=== PATIENT | female | born 1950 | race Caucasian/White ===

== ENCOUNTER 2017-12-16 08:47 | Inpatient (IN) | payer MEDICARE, OTHER ==
[2017-12-16] MEDS ORDERED: NS 0.9% 1000 ML* 1,000 ML IV ONE (09:11)
[2017-12-16 09:53] LABS: ABS Basophils 0 10^3/ul (0-0.2); ABS Eosinophils 0 10^3/ul (0-0.6); ABS Lymphocytes 0.4 10^3/ul (1.0-4.8); ABS Monocytes 0.8 10^3/ul (0-0.8); ABS Neutrophils 12.1 10^3/ul (1.5-7.7); ABS Nucleated RBC 0 10^3/ul; Eosinophil % 0 % (0-6); Hematocrit 38 % (35-47); Hemoglobin 12.8 g/dl (12.0-16.0); Lymphocyte % 2.9 % (25-47); Mean Corpuscular HGB Conc 34 g/dl (31-36); Mean Corpuscular Hemoglobin 30 pg (27-31); Mean Corpuscular Volume 89 fL (80-97); Mean Platelet Volume 7 um3 (7.4-10.4); Nucleated Red Blood Cells % 0; Platelet Count 261 10^3/ul (150-450); Red Cell Distribution Width 13 % (10.5-15); White Blood Count 13.3 10^3/ul (3.5-10.8)
[2017-12-16 09:57] LABS: EGFR Non-African American 56.9 (>60)
--- NOTE | 2017-12-16 09:58 | RAD ---
HISTORY: Shortness of breath, cough COMPARISONS: November 03, 2006 VIEWS: 2: Frontal and lateral views of the chest. FINDINGS: CARDIOMEDIASTINAL SILHOUETTE: The cardiomediastinal silhouette is normal. SREE: The sree are normal. PLEURA: The costophrenic angles are sharp. No pleural abnormalities are noted. LUNG PARENCHYMA: There is hyperinflation with flattening of the diaphragm and expansion of the AP diameter of the chest. There is confluent alveolar opacification of the right lower lobe ABDOMEN: The upper abdomen is clear. There is no subphrenic gas. BONES AND SOFT TISSUES: Mild degenerative changes are noted. Surgical clips are noted in the right axilla. OTHER: None. IMPRESSION: 1. RIGHT LOWER LOBE CONSOLIDATION. 2. COPD. 3. RECOMMEND FOLLOW-UP UNTIL RESOLUTION TO EXCLUDE UNDERLYING PULMONARY PARENCHYMAL PATHOLOGY.
[2017-12-16] MEDS ORDERED: Levofloxacin 750 MG IVPREMIX(* 750 MG/150 ML BAG IVPB ONE (10:18)
[2017-12-16] MEDS: KCL 10 MEQ/50 ML IVPREMIX* 10 MEQ/50 ML BAG IV SCH ×2 (10:40→12:21)
[2017-12-16] MEDS ORDERED: Albuterol 2.5 MG/3 ML NEB.SOL* (0.083%) INH PRN (11:23)
[2017-12-16] MEDS ORDERED: Ondansetron INJ* 2 MG/ML VIAL IV PRN (11:23)
[2017-12-16] MEDS ORDERED: Acetaminophen TAB* 325 MG PO PRN (11:23)
[2017-12-16] MEDS ORDERED: NS 0.9% 1000 ML* 1,000 ML IV SCH (11:30)
[2017-12-16] MEDS ORDERED: Potassium Chlor TAB* 20 MEQ TAB.ER PO ONE (11:33)
[2017-12-16] MEDS ORDERED: Iodixanol* (CONTRAST) 320 MG/ML 100 ML SDV IV ONE (11:39)
[2017-12-16] MEDS: predniSONE TAB* 20 MG PO SCH (12:21)
--- NOTE | 2017-12-16 12:49 | RAD ---
INDICATION: Pneumonia. COMPARISON: Comparison is made with prior chest x-ray study from December 16, 2017. TECHNIQUE: A CT scan of the chest was performed with intravenous contrast following intravenous injection of 80 ml of Omnipaque 300 nonionic contrast. Contiguous axial sections were obtained from the lung apices through the lung bases. Images were reconstructed in the coronal and sagittal planes. FINDINGS: There is a small patchy infiltrate present in the posterior aspect of the right upper lobe and a slightly more prominent infiltrate present in the posterior aspect of the right lower lobe. There is a small right pleural effusion. The left lung appears clear. No significant enlarged mediastinal lymph nodes are seen. There is a 0.8 cm mildly prominent right hilar lymph node is noted. The heart is within normal limits in size. No pericardial effusion is present. The thoracic aorta is normal in caliber. There is moderate calcific plaque present. No significant focal osseous abnormality is seen. IMPRESSION: RIGHT UPPER AND LOWER LOBE INFILTRATES MOST CONSISTENT WITH PNEUMONIA. RECOMMEND FOLLOW-UP CHEST X-RAYS TO RESOLUTION.
[2017-12-16] MEDS: Albuterol/Ipratropium NEB.SOL* Albuterol 2.5 MG/Ipratropium 0.5 MG 3 ML INH SCH ×5 (13:15→23:26)
--- NOTE | 2017-12-16 13:49 | HP ---
CC: Dr. Reyes * HISTORY AND PHYSICAL: DATE OF ADMISSION: 12/16/17 PRIMARY CARE PROVIDER: Dr. Adrienne Reyes. ATTENDING PHYSICIAN WHILE IN THE HOSPITAL: Dr. Esther Coates * (report dictated by Ryan Manuel NP). CHIEF COMPLAINT: 1. Cough. 2. Shortness of breath. 3. Not feeling well. HISTORY OF PRESENT ILLNESS: Ms. Olvera is a 67-year-old female patient carrying a history of breast CA, hypothyroidism, hypertension, COPD, history of atrial fibrillation thought to be secondary to hypothyroidism which now resolved, no longer on anticoagulation, she comes into our ER today, says that on Tuesday night she started having a cough, it was nonproductive but then it strictly became productive, got progressively worse throughout the week, she spoke to her primary. She was started on cough syrup and she said cough syrup kind of had codeine in it and made her feel tired, drowsy, fatigued. The patient said that she had progressive worsening shortness of breath, cough. She had chills. She just was not feeling good. She denied any other symptoms of arthralgias and myalgias. She denied having any chest pain with exception when she coughs, she said that felt like it was stabbing in the right side of her chest. She denied having any abdominal discomfort. There has been no recent weight loss or weight changes. The patient said that she was getting short of breath, so she decided to come in to the ED today particularly when she woke up this morning really was coughing, she was bringing up more sputum and she was having some shortness of breath. She came into the ED, ultimately was found to have pneumonia. She denied having any dysuria or frequency and there was no loss of consciousness, only chest pain she has when she was coughing. PAST MEDICAL HISTORY: Significant for: 1. Breast CA 2. Hypothyroidism. 3. Hypertension. 4. COPD. 5. AFib. PAST SURGICAL HISTORY: 1. She has had a mastectomy. 2. She has had elbow surgery. MEDICATIONS: Home medications according to the list provided include: 1. Lopressor 25 mg p.o. b.i.d. 2. Atrovent 2 puffs inhaled every 6 hours. 3. Hydrochlorothiazide 25 mg daily. 4. Ventolin 2 puffs inhaled every 4 hours as needed. 5. Potassium 20 mEq p.o. daily. 6. Synthroid 37.5 mcg p.o. every other day alternating with 75 mcg. 7. Advair 1 puff inhaled b.i.d. ALLERGIES TO MEDICATIONS: Include no known drug allergies. FAMILY HISTORY: Mother had a history of dementia and breast cancer. Father had a history of colon cancer. SOCIAL HISTORY: She is a former. She does not drink alcohol. Surrogate decision maker is her . REVIEW OF SYSTEMS: There is no documented fever. She did admit to subjectively having some chills and feeling warm. She denied having any double vision. There was no ear discharge. She denied having rhinorrhea or sore throat. No thyroid enlargement. Denied having any orthopnea, nocturnal dyspnea. She did admit to having sharp stabbing chest pain with coughing. No abdominal pain. No nausea, no vomiting. No dysuria, no frequency. No seizure , no loss of consciousness. No pruritus, no skin ulcerations. Review of 14 systems completed, all others negative. PHYSICAL EXAMINATION GENERAL: At this time, Ms. Olvera is a 67-year-old female patient. She is sitting in the ED stretcher. She does not appear to be in any acute distress. VITAL SIGNS: Blood pressure 119/68, pulse 83, respirations 18, O2 sat 98% on 2 L, temperature 98.3. HEENT: Head: Atraumatic and normocephalic. Eyes: EOMs are intact. Sclerae anicteric and not pale. Throat: Oral mucosa appears to be dry. No oropharyngeal erythema. NECK: Supple. LUNGS: She had wheezing throughout. She had crackles in the right base. She had equal diaphragmatic expansion. HEART: Sounds S1 and S2. Regular rate and rhythm. No murmurs, rubs, or gallops. ABDOMEN: Soft, it was flat, nontender. Bowel sounds present. EXTREMITIES: Pulses were 2+ throughout. She is moving all 4 extremities with 5 /5 strength. NEUROLOGIC: The patient is awake. She is alert. She is oriented x3. Tongue midline. Dance Hall Host/Hostess are equal. No gross focal deficits. SKIN: Intact. DIAGNOSTIC STUDIES/LAB DATA: WBC of 13.3, RBC of 4.20, hemoglobin 12.8, hematocrit of 38, platelet count of 261. Sodium was 132, potassium is 2.9, chloride of 93, bicarb 28, BUN 22, creatinine 0.97, glucose 127, lactate 1.2, calcium 9.5, mag 1.9. Total bili 1.3, AST 38, ALT 44, alk phos 198. CK was 31. Troponin 0.01. CRP was 376 and albumin was 3.5. Serology was negative for flu. She did have chest x-ray. Under my review, it does appear that she has a right lower lobe infiltrate. Radiologist read as right lower lobe consolidation. She will be recommended followup until resolution to exclude underlying pulmonary parenchymal pathology. There was an EKG obtained today as well, shows a normal sinus rhythm, rate 88. No ST elevations or T-wave inversions. Reviewed with her previous EKG, it is similar exception actually the previous EKG was AFib and that was in 2005. Old medical records reviewed. ASSESSMENT AND PLAN: Ms. Olvera is 67-year-old female patient coming into the ED today with complaints of cough, not feeling well, progressive worsening shortness of breath and sputum production. On evaluation, found to have pneumonia. She will be admitted under inpatient status for: 1. Pneumonia. At this point, I will go ahead and place her on Rocephin and azithromycin. She got Levaquin here in the ED, so we will start using antibiotics tomorrow. I will go ahead and put her on nebs around the clock along with p.o. and inhaled steroids, pulmonary toileting, and we will check legionella antigen test, Streptococcus pneumoniae antigen, sputum cultures. Because of her history of smoking and the fact that she does have pneumonia, I am going to get CT of the chest as well to make sure there is any not other concerning findings and then if this does not show anything, she still need an x -ray post treatment, which can be followed with her primary. 2. Chronic obstructive pulmonary disease with exacerbation. Again steroids, Dulera, standing nebs, and p.r.n. albuterol has been ordered and pulmonary toileting. 3. Breast cancer. Follow with her primary. 4. Hypothyroidism. Continue her Synthroid. 5. Hypertension. In the setting of acute illness, I am going to hold the hydrochlorothiazide. I will keep her on the beta martina, because of the history atrial fibrillation, withhold parameters and we will follow. 6. Atrial fibrillation. Again, she is in sinus rhythm now, it was one time secondary to hypothyroidism. She has never been on anticoagulation, so we will just continue to follow. Follow with her primary. 7. DVT prophylaxis. She will be placed on heparin subcu. 8. Code status. She actually wished to be a DNR, she says she has a MOLST at home. We will try to get that if possible. 9. Fluids, electrolytes, and nutrition. She can have a regular diet. TIME SPENT: On admission 60 minutes, greater than half of the time was spent face- to-face with the patient obtaining my history and physical, other half of the time spent going over the plan of care with the patient and implementing plan of care. I did discuss the plan of care with my attending, Dr. Coates; she is in agreement. RYAN MANUEL NP [id number]/[facility] #: [id number] RAYA
[2017-12-16 18:45] LABS: Urine Appearance Clear; Urine Blood 3+ (Negative); Urine Color Yellow; Urine Ketones 1+ (Negative); Urine Protein Negative (Negative); Urine Specific Gravity 1.055 (1.010-1.030); Urine Urobilinogen Negative (Negative)
[2017-12-16] MEDS: Mometasone/Formoter 200/5 MDI INH SCH (19:50)
[2017-12-16] MEDS: Heparin VIAL(*) 5000 UNITS/ML VIAL (FIVE THOUSAND) SUBCUT SCH (21:02)
[2017-12-16] MEDS: Metoprolol Tartrate TAB* 25 MG PO SCH (21:02)
[2017-12-17] MEDS: Albuterol/Ipratropium NEB.SOL* Albuterol 2.5 MG/Ipratropium 0.5 MG 3 ML INH SCH ×6 (02:41→23:00)
[2017-12-17 05:05] LABS: ABS Basophils 0.1 10^3/ul (0-0.2); ABS Eosinophils 0 10^3/ul (0-0.6); ABS Lymphocytes 0.6 10^3/ul (1.0-4.8); ABS Monocytes 0.8 10^3/ul (0-0.8); ABS Neutrophils 10.9 10^3/ul (1.5-7.7); ABS Nucleated RBC 0 10^3/ul; Eosinophil % 0 % (0-6); Hematocrit 31 % (35-47); Hemoglobin 10.4 g/dl (12.0-16.0); Lymphocyte % 4.6 % (25-47); Mean Corpuscular HGB Conc 34 g/dl (31-36); Mean Corpuscular Hemoglobin 30 pg (27-31); Mean Corpuscular Volume 90 fL (80-97); Mean Platelet Volume 7 um3 (7.4-10.4); Nucleated Red Blood Cells % 0; Platelet Count 240 10^3/ul (150-450); Red Blood Count 3.43 10^6/ul (4.0-5.4); Red Cell Distribution Width 13 % (10.5-15); White Blood Count 12.3 10^3/ul (3.5-10.8)
[2017-12-17 05:16] LABS: INR 1.17 (0.77-1.02)
[2017-12-17] MEDS: Levothyroxine TAB* 75 MCG TAB PO SCH (06:08)
[2017-12-17] MEDS: Mometasone/Formoter 200/5 MDI INH SCH ×2 (07:51→19:35)
[2017-12-17] MEDS: cefTRIAXone VIAL(*) 1,000 MG in NS 0.9% 50 ML* 50 ML IVPB SCH (08:08)
[2017-12-17] MEDS: Heparin VIAL(*) 5000 UNITS/ML VIAL (FIVE THOUSAND) SUBCUT SCH ×2 (08:09→21:05)
[2017-12-17] MEDS: predniSONE TAB* 20 MG PO SCH (08:09)
[2017-12-17] MEDS: Metoprolol Tartrate TAB* 25 MG PO SCH ×2 (08:09→21:05)
[2017-12-17] MEDS: Potassium Chlor TAB* 20 MEQ TAB.ER PO SCH (08:09)
[2017-12-17] MEDS ORDERED: Azithromycin IV(*) 500 MG in NS 0.9% 250 ML* 250 ML IVPB SCH (09:30)
--- NOTE | 2017-12-17 10:15 | ED ---
Mitzy Mclain Gabriel, scribed for Fantasma Hernandez MD on 12/16/17 at 0912 . Respiratory - HPI Summary HPI Summary: This patient is a 67 year old F BIBA to [facility] with a chief complaint of a productive cough since 12/11/17. The patient rates the pain 6/10 in severity. Patient reports SOB, CP that began this morning, weakness, light headedness, and yellow thick sputum. Patient denies fever, chills, LE edema, and n/v/d. - History of Current Complaint Chief Complaint: EDUpperRespComplaint Stated Complaint: FLU LIKE SYPTOMS Time Seen by Provider: 12/16/17 08:53 Hx Obtained From: Patient Onset/Duration: Still Present Timing: Constant Initial Severity: Moderate Current Severity: Moderate Pain Intensity: 6 Sputum Amount: Small Sputum Color: Yellow Associated Signs and Symptoms: Negative - fever, chills, LE edema, and n/v/d., SOB, Chest Pain - Allergy/Home Medications Allergies/Adverse Reactions: Allergies Allergy/AdvReac Type Severity Reaction Status Date / Time No Known Allergies Allergy Verified 12/16/17 09:00 Home Medications: Home Medications Albuterol HFA INHALER* [Ventolin HFA Inhaler*] 2 puff INH Q4H PRN 12/16/17 [ History Confirmed 12/16/17] Fluticasone-Salmeterol 250-50* [Advair Diskus 250-50*] 1 puff INH BID 12/16/17 [ History Confirmed 12/16/17] Levothyroxine TAB* [Synthroid TAB*] 37.5 mcg PO EVERY OTHER DAY 12/16/17 [ History Confirmed 12/16/17] Potassium Chlor TAB* [Klor Con ER TAB*] 20 meq PO DAILY 12/16/17 [History Confirmed 12/16/17] PMH/Surg Hx/FS Hx/Imm Hx History: Denies: Hx Benign Prostatic Hyperplasia Musculoskeletal History: Denies: Hx Fibromyalgia, Hx Gout Neurological History: Denies: Hx CVA, Hx Dementia - Cancer History Hx Chemotherapy: Yes - BREAST Hx Radiation Therapy: No Infectious Disease History: No Infectious Disease History: Denies: Traveled Outside the [place] in Last 30 Days - Family History Known Family History: Negative: Hypertension, Seizure Disorder - Social History Alcohol Use: None Substance Use Type: Reports: None Smoking Status (MU): Former Smoker Review of Systems Negative: Fever, Chills Positive: Chest Pain Positive: Shortness Of Breath, Cough Negative: Vomiting, Diarrhea, Nausea Neurological: Other - light headedness Positive: Weakness All Other Systems Reviewed And Are Negative: Yes Physical Exam - Summary Physical Exam Summary: VITAL SIGNS: Reviewed. GENERAL: Patient is an elderly female who is lying comfortable in the stretcher. Patient is not in any acute respiratory distress. HEAD AND FACE: No signs of trauma. No ecchymosis, hematomas or skull depressions. No sinus tenderness. EYES: PERRLA, EOMI x 2, No injected conjunctiva, no nystagmus. EARS: Hearing grossly intact. Ear canals and tympanic membranes are within normal limits. MOUTH: Oropharynx within normal limits. NECK: Supple, trachea is midline, no adenopathy, no JVD, no carotid bruit, no c- spine tenderness, neck with full ROM. CHEST: Symmetric, no tenderness at palpation LUNGS: right sided crackles CVS: Regular rate and rhythm, S1 and S2 present, no murmurs or gallops appreciated. ABDOMEN: Soft, non-tender. No signs of distention. No rebound no guarding, and no masses palpated. Bowel sounds are normal. EXTREMITIES: FROM in all major joints, no edema, no cyanosis or clubbing. NEURO: Alert and oriented x 3. No acute neurological deficits. Speech is normal and follows commands. SKIN: Dry and warm Triage Information Reviewed: Yes Vital Signs On Initial Exam: Initial Vitals Temp Pulse Resp BP Pulse Ox 98.3 F 92 30 149/71 95 12/16/17 08:53 12/16/17 08:53 12/16/17 08:53 12/16/17 08:53 12/16/17 08:53 Vital Signs Reviewed: Yes Diagnostics - Vital Signs Vital Signs Temp Pulse Resp BP Pulse Ox 12/16/17 09:00 91 95 12/16/17 08:57 30 12/16/17 08:55 93 95 12/16/17 08:54 149/71 12/16/17 08:53 98.3 F 92 30 149/71 95 - Laboratory Lab Results: Lab Results 12/16/17 12/16/17 12/16/17 Range/Units 09:15 09:15 09:15 WBC 13.3 H (3.5-10.8) 10^3/ul RBC 4.20 (4.0-5.4) 10^6/ul Hgb 12.8 (12.0-16.0) g/dl Hct 38 (35-47) % MCV 89 (80-97) fL MCH 30 (27-31) pg MCHC 34 (31-36) g/dl RDW 13 (10.5-15) % Plt Count 261 (150-450) 10^3/ul MPV 7 L (7.4-10.4) um3 Neut % (Auto) 90.6 H (38-83) % Lymph % (Auto) 2.9 L (25-47) % Nicholas % (Auto) 6.3 (1-9) % Eos % (Auto) 0 (0-6) % Baso % (Auto) 0.2 (0-2) % Absolute Neuts (auto) 12.1 H (1.5-7.7) 10^3/ul Absolute Lymphs (auto) 0.4 L (1.0-4.8) 10^3/ul Absolute Monos (auto) 0.8 (0-0.8) 10^3/ul Absolute Eos (auto) 0 (0-0.6) 10^3/ul Absolute Basos (auto) 0 (0-0.2) 10^3/ul Absolute Nucleated RBC 0 10^3/ul Nucleated RBC % 0 Sodium 132 L (133-145) mmol/L Potassium 2.9 L (3.5-5.0) mmol/L Chloride 93 L (101-111) mmol/L Carbon Dioxide 28 (22-32) mmol/L Anion Gap 11 (2-11) mmol/L BUN 22 (6-24) mg/dL Creatinine 0.97 H (0.51-0.95) mg/dL Est GFR ( Amer) 73.2 (>60) Est GFR (Non-Af Amer) 56.9 (>60) BUN/Creatinine Ratio 22.7 H (8-20) Glucose 127 H (70-100) mg/dL Lactic Acid (0.5-2.0) mmol/L Calcium 9.5 (8.6-10.3) mg/dL Magnesium Pending Total Bilirubin 1.30 H (0.2-1.0) mg/dL AST 38 (13-39) U/L ALT 44 (7-52) U/L Alkaline Phosphatase 198 H (34-104) U/L Total Creatine Kinase 31 (10-223) U/L Troponin I 0.01 (<0.04) ng/mL C-Reactive Protein 376.43 H (< 5.00) mg/L B-Natriuretic Peptide 94 ( - 100) pg/mL Total Protein 7.9 (6.4-8.9) g/dL Albumin 3.5 (3.2-5.2) g/dL Globulin 4.4 H (2-4) g/dL Albumin/Globulin Ratio 0.8 L (1-3) Influenza A (Rapid) (Negative) Influenza B (Rapid) (Negative) 12/16/17 12/16/17 Range/Units 09:15 09:39 WBC (3.5-10.8) 10^3/ul RBC (4.0-5.4) 10^6/ul Hgb (12.0-16.0) g/dl Hct (35-47) % MCV (80-97) fL MCH (27-31) pg MCHC (31-36) g/dl RDW (10.5-15) % Plt Count (150-450) 10^3/ul MPV (7.4-10.4) um3 Neut % (Auto) (38-83) % Lymph % (Auto) (25-47) % Nicholas % (Auto) (1-9) % Eos % (Auto) (0-6) % Baso % (Auto) (0-2) % Absolute Neuts (auto) (1.5-7.7) 10^3/ul Absolute Lymphs (auto) (1.0-4.8) 10^3/ul Absolute Monos (auto) (0-0.8) 10^3/ul Absolute Eos (auto) (0-0.6) 10^3/ul Absolute Basos (auto) (0-0.2) 10^3/ul Absolute Nucleated RBC 10^3/ul Nucleated RBC % Sodium (133-145) mmol/L Potassium (3.5-5.0) mmol/L Chloride (101-111) mmol/L Carbon Dioxide (22-32) mmol/L Anion Gap (2-11) mmol/L BUN (6-24) mg/dL Creatinine (0.51-0.95) mg/dL Est GFR ( Amer) (>60) Est GFR (Non-Af Amer) (>60) BUN/Creatinine Ratio (8-20) Glucose (70-100) mg/dL Lactic Acid 1.2 (0.5-2.0) mmol/L Calcium (8.6-10.3) mg/dL Magnesium Total Bilirubin (0.2-1.0) mg/dL AST (13-39) U/L ALT (7-52) U/L Alkaline Phosphatase (34-104) U/L Total Creatine Kinase (10-223) U/L Troponin I (<0.04) ng/mL C-Reactive Protein (< 5.00) mg/L B-Natriuretic Peptide ( - 100) pg/mL Total Protein (6.4-8.9) g/dL Albumin (3.2-5.2) g/dL Globulin (2-4) g/dL Albumin/Globulin Ratio (1-3) Influenza A (Rapid) Negative (Negative) Influenza B (Rapid) Negative (Negative) Result Diagrams: 12/16/17 09:15 12/16/17 09:15 Lab Statement: Any lab studies that have been ordered have been reviewed, and results considered in the medical decision making process. - Radiology CXR Radiology Interpretation Completed By: Radiologist - 1. RIGHT LOWER LOBE CONSOLIDATION. 2. COPD. 3. RECOMMEND FOLLOW-UP UNTIL RESOLUTION TO EXCLUDE UNDERLYING PULMONARY PARENCHYMAL PATHOLOGY. ED physician has reviewed this radiology report. - EKG 0916 Cardiac Rate: NL EKG Rhythm: Sinus Rhythm - at 88 BPM EKG Interpretation: normal axis, no ST elevations Disposition - Course Assessment/Plan: In the ED course an IV access was obtained. Patient was placed in a head doffer. Patient was started with IV fluids. Labs without any significant abnormality except for increased WBC 13.3, NA 132, K 2.9, CRP 376, influenza A&B negative. Troponin #1: 0.01. CXR impression: 1. RIGHT LOWER LOBE CONSOLIDATION. 2. COPD. 3. RECOMMEND FOLLOW-UP UNTIL RESOLUTION TO EXCLUDE UNDERLYING PULMONARY PARENCHYMAL PATHOLOGY. In the ED course she was started in Levaquin. CURB 65 is moderate therefore it is recommended for impatient treatment. I discuss my physical exam, findings and test results with Dr. Coates from the hospitalist services and she agrees to admit patient to his services. Patient is hemodynamically stable alert and oriented x 3. - Differential Dx - Cardiopulmonary Differential Diagnoses - Cardiopulmonary: Asthma, Bronchitis, CHF, Influenza, Lower Resp Infection - Diagnoses Provider Diagnoses: Pneumonia - Physician Notifications Discussed Care Of Patient With: Esther Coates Time Discussed With Above Provider: 10:37 Instructed by Provider To: Other - We discussed patient care with Dr. Coates and they have accepted the patient for admission. Discharge - Discharge Plan Condition: Fair Disposition: ADMITTED TO [facility] documentation as recorded by the Mitzy barragan Gabriel accurately reflects the service I personally performed and the decisions made by me, Fantasma Hernandez MD.
--- NOTE | 2017-12-17 10:53 | PN ---
Subjective Date of Service: 12/17/17 Interval History: Feeling much better. Still with productive cough. Got SOB and reported wheezing with ambulation to bathroom. Was RA prior. pleuritic pain on right. cultures negative. abdominal upset, nausea, vomiting, diarrhea all resolved after 1 day (after taking cough medicine with codeine) was unable to really stand or ambulate at home as had been light headed Objective Active Medications: Acetaminophen (Tylenol Tab*) 650 mg PO Q4H PRN PRN Reason: FEVER/PAIN Albuterol (Ventolin 2.5 Mg/3 Ml Neb.Nisha*) 2.5 mg INH Q2H PRN PRN Reason: SOB/WHEEZING Albuterol/Ipratropium (Duoneb (Albuterol 2.5 Mg/Ipratropium 0.5 Mg)) 1 neb INH [id number] AWAKE [facility] Last Admin: 12/17/17 07:49 Dose: 1 neb Heparin Sodium (Porcine) (Heparin Vial(*)) 5,000 units SUBCUT Q12HR [facility] Last Admin: 12/17/17 08:09 Dose: 5,000 units Azithromycin 500 mg/ Sodium (Chloride) 250 mls @ 250 mls/hr IVPB Q24H [facility] Last Admin: 12/17/17 08:53 Dose: 250 mls/hr Ceftriaxone Sodium 1,000 mg/ (Sodium Chloride) 50 mls @ 200 mls/hr IVPB Q24H [facility] Last Admin: 12/17/17 08:08 Dose: 200 mls/hr Levothyroxine Sodium (Synthroid Tab*) 75 mcg PO Q48H [facility] Levothyroxine Sodium (Synthroid Tab*) 37.5 mcg PO Q48H [facility] Last Admin: 12/17/17 06:08 Dose: 37.5 mcg Metoprolol Tartrate (Lopressor Tab*) 25 mg PO BID [facility] Last Admin: 12/17/17 08:09 Dose: 25 mg Mometasone Furoate/Formoterol Fumar (Dulera 200/5 Mdi*) 2 puff INH BID [facility] Last Admin: 12/17/17 07:51 Dose: 2 puff Ondansetron HCl (Zofran Inj*) 4 mg IV Q6H PRN PRN Reason: NAUSEA Potassium Chloride (Klor Con Er Tab*) 20 meq PO DAILY [facility] Last Admin: 12/17/17 08:09 Dose: 20 meq Prednisone (Deltasone Tab*) 60 mg PO DAILY [facility] Last Admin: 12/17/17 08:09 Dose: 60 mg Vital Signs - 8 hr 12/17/17 12/17/17 12/17/17 03:12 07:22 07:41 Temperature 98.4 F 97.6 F Pulse Rate 84 80 Respiratory 16 16 16 Rate Blood Pressure 110/45 128/57 (mmHg) O2 Sat by Pulse 98 98 Oximetry 12/17/17 07:57 Temperature Pulse Rate 92 Respiratory 22 Rate Blood Pressure (mmHg) O2 Sat by Pulse 98 Oximetry Oxygen Devices in Use Now: Nasal Cannula Appearance: NAD, resting in bed Eyes: No Scleral Icterus, PERRLA Ears/Nose/Mouth/Throat: Clear Oropharnyx Neck: Trachea Midline Respiratory: - - rhonchi at right base. No significant wheezing or rales. Cardiovascular: NL Sounds; No Murmurs; No JVD, RRR, No Edema Abdominal: NL Sounds; No Tenderness; No Distention, No Hepatosplenomegaly Extremities: No Edema, No Clubbing, Cyanosis Skin: No Rash or Ulcers, No Nodules or Sclerosis Neurological: Alert and Oriented x 3, NL Sensation, NL Muscle Strength and Tone Result Diagrams: 12/17/17 04:54 12/17/17 04:54 Additional Lab and Data: Laboratory Results - last 24 hr 12/16/17 12/16/17 12/17/17 09:15 15:49 04:54 WBC 12.3 H RBC 3.43 L Hgb 10.4 L Hct 31 L MCV 90 MCH 30 MCHC 34 RDW 13 Plt Count 240 MPV 7 L Neut % (Auto) 88.8 H Lymph % (Auto) 4.6 L [place] % (Auto) 6.2 Eos % (Auto) 0 Baso % (Auto) 0.4 Absolute Neuts (auto) 10.9 H Absolute Lymphs (auto) 0.6 L Absolute Monos (auto) 0.8 Absolute Eos (auto) 0 Absolute Basos (auto) 0.1 Absolute Nucleated RBC 0 Nucleated RBC % 0 INR (Anticoag Therapy) Sodium Potassium Chloride Carbon Dioxide Anion Gap BUN Creatinine Est GFR ( Amer) Est GFR (Non-Af Amer) BUN/Creatinine Ratio Glucose Calcium Magnesium 1.9 Urine Color Yellow Urine Appearance Clear Urine pH 5.0 Ur Specific [place] 1.055 H Urine Protein Negative Urine Ketones 1+ H Urine Blood 3+ H Urine Nitrate Negative Urine Bilirubin Negative Urine Urobilinogen Negative Ur Leukocyte Esterase Negative Urine WBC (Auto) Trace(0-5/hpf) Urine RBC (Auto) 3+(>10/hpf) H Ur Squamous Epith Cells Present H Urine Bacteria Absent Urine Glucose Negative 12/17/17 12/17/17 04:54 04:54 WBC RBC Hgb Hct MCV MCH MCHC RDW Plt Count MPV Neut % (Auto) Lymph % (Auto) [place] % (Auto) Eos % (Auto) Baso % (Auto) Absolute Neuts (auto) Absolute Lymphs (auto) Absolute Monos (auto) Absolute Eos (auto) Absolute Basos (auto) Absolute Nucleated RBC Nucleated RBC % INR (Anticoag Therapy) 1.17 H Sodium 136 Potassium 3.5 Chloride 103 Carbon Dioxide 26 Anion Gap 7 BUN 13 Creatinine 0.73 Est GFR ( Amer) 101.7 Est GFR (Non-Af Amer) 79.0 BUN/Creatinine Ratio 17.8 Glucose 137 H Calcium 8.4 L Magnesium Urine Color Urine Appearance Urine pH Ur Specific [place] Urine Protein Urine Ketones Urine Blood Urine Nitrate Urine Bilirubin Urine Urobilinogen Ur Leukocyte Esterase Urine WBC (Auto) Urine RBC (Auto) Ur Squamous Epith Cells Urine Bacteria Urine Glucose Microbiology and Other Data: Microbiology 12/16/17 10:08 Blood Venous Aerobic Blood Culture - Preliminary No Growth Day 1 12/16/17 10:08 Blood Venous Anaerobic Blood Culture - Preliminary No Growth Day 1 12/16/17 10:08 Blood Venous Aerobic Blood Culture - Preliminary No Growth Day 1 12/16/17 10:08 Blood Venous Anaerobic Blood Culture - Preliminary No Growth Day 1 12/16/17 18:45 Urine Legionella Urinary Antigen - Final Negative Legionella 12/16/17 18:45 Urine Streptococcus pneumoniae Ag Screen - Final Negative S. pneumo Antigen 12/16/17 09:39 Sputum Gram Stain - Final 12/16/17 09:15 Nasal Influenza Types A,B Antigen (JANNA) - Final Specimen received for Influenza A/B Molecular testing Assess/Plan/Problems-Billing Assessment: 67 yo female PMH COPD, breast CA, HTN, hypothyroidism p/w productive cough, chills, SOB 2/2 RLL>RUL pna. Improving on ceftriaxone and azithromycin. on RA. - Patient Problems (1) PNA (pneumonia) Current Visit: Yes Status: Acute Code(s): J18.9 - PNEUMONIA, UNSPECIFIED ORGANISM SNOMED Code(s): 163255606 Comment: Continue ceftriaxone. Switch azithromycin to 250mg po from 500mg IV s/p 1 dose levaquin in ED. f/u Cultures, Gram Stain with 3+ BPC, 2+ GPB. strep pna and legionella urine Ags negative BCx negative. nontoxic appearing. (2) COPD (chronic obstructive pulmonary disease) Current Visit: Yes Status: Acute Code(s): J44.9 - CHRONIC OBSTRUCTIVE PULMONARY DISEASE, UNSPECIFIED SNOMED Code(s): 10164569 Comment: home was advair and atrovent. continue dulera, duonebs q2h prn prednisone 60mg daily. taper rapidly (3) HTN (hypertension) Current Visit: Yes Status: Acute Code(s): I10 - ESSENTIAL (PRIMARY) HYPERTENSION SNOMED Code(s): 38435559 Comment: continue metoprolol 25mg BID. (4) Hypothyroidism Current Visit: Yes Status: Acute Code(s): E03.9 - HYPOTHYROIDISM, UNSPECIFIED SNOMED Code(s): 64693729 Comment: continue synthroid 75 mcg daily. Status and Disposition: medicine inpatient. anticipate d/c 12/18 Attending: Hemal Baum
[2017-12-18] MEDS: Albuterol/Ipratropium NEB.SOL* Albuterol 2.5 MG/Ipratropium 0.5 MG 3 ML INH SCH ×5 (04:14→19:37)
[2017-12-18] MEDS: Levothyroxine TAB* 75 MCG TAB PO SCH (05:46)
[2017-12-18] MEDS: predniSONE TAB* 20 MG PO SCH (08:02)
[2017-12-18] MEDS: Azithromycin TAB* 250 MG PO SCH (08:02)
[2017-12-18] MEDS: Metoprolol Tartrate TAB* 25 MG PO SCH ×2 (08:02→20:11)
[2017-12-18] MEDS: Heparin VIAL(*) 5000 UNITS/ML VIAL (FIVE THOUSAND) SUBCUT SCH ×2 (08:02→20:12)
[2017-12-18] MEDS: Potassium Chlor TAB* 20 MEQ TAB.ER PO SCH (08:02)
[2017-12-18] MEDS: cefTRIAXone VIAL(*) 1,000 MG in NS 0.9% 50 ML* 50 ML IVPB SCH (08:03)
[2017-12-18] MEDS: Mometasone/Formoter 200/5 MDI INH SCH ×2 (08:22→19:37)
--- NOTE | 2017-12-18 10:57 | PN ---
Subjective Date of Service: 12/18/17 Interval History: Weaned off oxygen at rest but needing minimum of 3L with ambulation (quickly desat to 85% and likley headed lower). SOB when got back to bed. Afebrile. no chest pain/pressure. poor appetite (food unappetizing) Objective Active Medications: Acetaminophen (Tylenol Tab*) 650 mg PO Q4H PRN PRN Reason: FEVER/PAIN Albuterol (Ventolin 2.5 Mg/3 Ml Neb.Nisha*) 2.5 mg INH Q2H PRN PRN Reason: SOB/WHEEZING Albuterol/Ipratropium (Duoneb (Albuterol 2.5 Mg/Ipratropium 0.5 Mg)) 1 neb INH [id number] AWAKE [facility] Last Admin: 12/18/17 08:20 Dose: 1 neb Azithromycin (Zithromax Tab*) 250 mg PO DAILY [facility] Last Admin: 12/18/17 08:02 Dose: 250 mg Heparin Sodium (Porcine) (Heparin Vial(*)) 5,000 units SUBCUT Q12HR [facility] Last Admin: 12/18/17 08:02 Dose: 5,000 units Ceftriaxone Sodium 1,000 mg/ (Sodium Chloride) 50 mls @ 200 mls/hr IVPB Q24H [facility] Last Admin: 12/18/17 08:03 Dose: 200 mls/hr Levothyroxine Sodium (Synthroid Tab*) 75 mcg PO Q48H [facility] Last Admin: 12/18/17 05:46 Dose: 75 mcg Levothyroxine Sodium (Synthroid Tab*) 37.5 mcg PO Q48H [facility] Last Admin: 12/17/17 06:08 Dose: 37.5 mcg Metoprolol Tartrate (Lopressor Tab*) 25 mg PO BID [facility] Last Admin: 12/18/17 08:02 Dose: 25 mg Mometasone Furoate/Formoterol Fumar (Dulera 200/5 Mdi*) 2 puff INH BID [facility] Last Admin: 12/18/17 08:22 Dose: 2 puff Ondansetron HCl (Zofran Inj*) 4 mg IV Q6H PRN PRN Reason: NAUSEA Potassium Chloride (Klor Con Er Tab*) 20 meq PO DAILY [facility] Last Admin: 12/18/17 08:02 Dose: 20 meq Prednisone (Deltasone Tab*) 60 mg PO DAILY [facility] Last Admin: 12/18/17 08:02 Dose: 60 mg Vital Signs - 8 hr 12/18/17 12/18/17 12/18/17 03:24 07:04 07:42 Temperature 98.0 F 97.7 F Pulse Rate 80 101 Respiratory 17 18 Rate Blood Pressure 124/51 143/44 (mmHg) O2 Sat by Pulse 97 86 94 Oximetry 12/18/17 12/18/17 08:00 08:25 Temperature Pulse Rate 98 Respiratory 18 18 Rate Blood Pressure (mmHg) O2 Sat by Pulse 94 Oximetry Oxygen Devices in Use Now: Nasal Cannula Appearance: NAD Eyes: No Scleral Icterus, PERRLA Ears/Nose/Mouth/Throat: NL Teeth, Lips, Gums, Mucous Membranes Moist Neck: NL Appearance and Movements; NL JVP, Trachea Midline Respiratory: - - Expiratory wheeze. rhonchi right upper and lower lung soriano. no rales. Cardiovascular: NL Sounds; No Murmurs; No JVD, RRR Abdominal: NL Sounds; No Tenderness; No Distention, No Hepatosplenomegaly Extremities: No Edema, No Clubbing, Cyanosis Skin: No Rash or Ulcers, No Nodules or Sclerosis Neurological: Alert and Oriented x 3, NL Muscle Strength and Tone Nutrition: Taking PO's Result Diagrams: 12/17/17 04:54 12/17/17 04:54 Additional Lab and Data: Microbiology and Other Data: Microbiology 12/16/17 10:08 Blood Venous Aerobic Blood Culture - Preliminary No Growth Day 2 12/16/17 10:08 Blood Venous Anaerobic Blood Culture - Preliminary No Growth Day 2 12/16/17 10:08 Blood Venous Aerobic Blood Culture - Preliminary No Growth Day 2 12/16/17 10:08 Blood Venous Anaerobic Blood Culture - Preliminary No Growth Day 2 12/16/17 18:45 Urine Legionella Urinary Antigen - Final Negative Legionella 12/16/17 18:45 Urine Streptococcus pneumoniae Ag Screen - Final Negative S. pneumo Antigen 12/16/17 09:39 Sputum Gram Stain - Final 12/16/17 09:15 Nasal Influenza Types A,B Antigen (JANNA) - Final Specimen received for Influenza A/B Molecular testing Assess/Plan/Problems-Billing Assessment: 67 yo female PMH COPD, breast CA, HTN, hypothyroidism p/w productive cough, chills, SOB 2/2 RLL>RUL pna. Improving on ceftriaxone and azithromycin but still needing supplemental oxygen with ambulation. Sputum Cx pending. - Patient Problems (1) PNA (pneumonia) Current Visit: Yes Status: Acute Code(s): J18.9 - PNEUMONIA, UNSPECIFIED ORGANISM SNOMED Code(s): 398585669 Comment: Continue ceftriaxone and azithromycin 250mg po s/p 1 dose levaquin in ED. f/u Cultures, Gram Stain with 3+ BPC, 2+ GPB. strep pna and legionella urine Ags negative BCx negative. nontoxic appearing but gets significantly SOB with desaturations with ambulation Will repeat 2 view CXR in AM. (2) COPD (chronic obstructive pulmonary disease) Current Visit: Yes Status: Acute Code(s): J44.9 - CHRONIC OBSTRUCTIVE PULMONARY DISEASE, UNSPECIFIED SNOMED Code(s): 97569768 Comment: home was advair and atrovent. continue dulera, duonebs q2h prn prednisone 60mg daily. (3) HTN (hypertension) Current Visit: Yes Status: Acute Code(s): I10 - ESSENTIAL (PRIMARY) HYPERTENSION SNOMED Code(s): 42724266 Comment: continue metoprolol 25mg BID. SBP 120-150s. (4) Hypothyroidism Current Visit: Yes Status: Acute Code(s): E03.9 - HYPOTHYROIDISM, UNSPECIFIED SNOMED Code(s): 10061424 Comment: continue synthroid 75 mcg daily. Status and Disposition: medicine inpatient. hopeful for 12/19 vs 12/20 Attending: Hemal Baum
[2017-12-18] MEDS ORDERED: Spiriva Inhaler DEVICE* 1 EACH DEVICE SCH (18:00)
[2017-12-18] MEDS ORDERED: Spiriva Inhaler DEVICE* 1 EACH DEVICE INH SCH (18:00)
[2017-12-19] MEDS: Albuterol/Ipratropium NEB.SOL* Albuterol 2.5 MG/Ipratropium 0.5 MG 3 ML INH SCH ×4 (01:23→19:42)
[2017-12-19 06:21] LABS: Hematocrit 32 % (35-47); Hemoglobin 10.8 g/dl (12.0-16.0); Mean Corpuscular HGB Conc 34 g/dl (31-36); Mean Corpuscular Hemoglobin 30 pg (27-31); Mean Corpuscular Volume 90 fL (80-97); Mean Platelet Volume 6 um3 (7.4-10.4); Platelet Count 369 10^3/ul (150-450); Red Blood Count 3.55 10^6/ul (4.0-5.4); Red Cell Distribution Width 13 % (10.5-15); White Blood Count 9.4 10^3/ul (3.5-10.8)
[2017-12-19] MEDS: Levothyroxine TAB* 75 MCG TAB PO SCH (06:22)
[2017-12-19 07:36] LABS: Monocytes % 2 % (0-13)
[2017-12-19] MEDS: Tiotropium CAP.INH* CAP.INH/18 MCG (USE ORDER SET !) INH SCH (07:50)
[2017-12-19] MEDS: Mometasone/Formoter 200/5 MDI INH SCH ×2 (07:50→19:42)
[2017-12-19] MEDS: Heparin VIAL(*) 5000 UNITS/ML VIAL (FIVE THOUSAND) SUBCUT SCH ×2 (08:38→21:45)
[2017-12-19] MEDS: Azithromycin TAB* 250 MG PO SCH (08:39)
[2017-12-19] MEDS: Potassium Chlor TAB* 20 MEQ TAB.ER PO SCH (08:39)
[2017-12-19] MEDS: predniSONE TAB* 20 MG PO SCH (08:39)
[2017-12-19] MEDS: Metoprolol Tartrate TAB* 25 MG PO SCH ×2 (08:39→21:45)
--- NOTE | 2017-12-19 10:14 | RAD ---
INDICATION: Pneumonia COMPARISON: December 16, 2017 TECHNIQUE: PA and lateral dual-energy views were obtained. FINDINGS: Bones/Soft Tissues: There are no acute bony findings. There is right mastectomy with axillary dissection Cardiomediastinal: The cardiomediastinal silhouette is normal. Lungs: There is hyperinflation with chronic interstitial change. There is persistent consolidative change in the right lung base. Recommend continued follow-up Pleura: A small right-sided pleural effusion is suspected. Other: None IMPRESSION: CHRONIC LUNG FINDINGS WITH HYPERINFLATION AND RIGHT BASILAR CONSOLIDATIVE CHANGE
--- NOTE | 2017-12-19 10:19 | PN ---
Subjective Date of Service: 12/19/17 Interval History: Doesn't feel like breathing has improved much. Strep Pna on Sputum Culture. CXR with persistent infiltrate RLL. Afebrile. Seemd to get shorter of breath after an inhaler tx last night but this AM better. Objective Active Medications: Acetaminophen (Tylenol Tab*) 650 mg PO Q4H PRN PRN Reason: FEVER/PAIN Albuterol (Ventolin 2.5 Mg/3 Ml Neb.Nisha*) 2.5 mg INH Q2H PRN PRN Reason: SOB/WHEEZING Albuterol/Ipratropium (Duoneb (Albuterol 2.5 Mg/Ipratropium 0.5 Mg)) 1 neb INH [id number] AWAKE [facility] Last Admin: 12/19/17 07:50 Dose: 1 neb Azithromycin (Zithromax Tab*) 250 mg PO DAILY [facility] Last Admin: 12/19/17 08:39 Dose: 250 mg Device (Tiotropium Inhaler Device*) 1 each .SEE ORDER .USE w/ SPIRIVA CAPS [facility] Heparin Sodium (Porcine) (Heparin Vial(*)) 5,000 units SUBCUT Q12HR [facility] Last Admin: 12/19/17 08:38 Dose: 5,000 units Ceftriaxone Sodium 2 gm/ (Sodium Chloride) 100 mls @ 200 mls/hr IVPB Q24H [facility] Levothyroxine Sodium (Synthroid Tab*) 75 mcg PO Q48H [facility] Last Admin: 12/18/17 05:46 Dose: 75 mcg Levothyroxine Sodium (Synthroid Tab*) 37.5 mcg PO Q48H [facility] Last Admin: 12/19/17 06:22 Dose: 37.5 mcg Methylprednisolone Sodium Succinate (Solu-Medrol 40 Mg) 40 mg IV Q8H [facility] Metoprolol Tartrate (Lopressor Tab*) 25 mg PO BID [facility] Last Admin: 12/19/17 08:39 Dose: 25 mg Mometasone Furoate/Formoterol Fumar (Dulera 200/5 Mdi*) 2 puff INH BID [facility] Last Admin: 12/19/17 07:50 Dose: 2 puff Ondansetron HCl (Zofran Inj*) 4 mg IV Q6H PRN PRN Reason: NAUSEA Potassium Chloride (Klor Con Er Tab*) 20 meq PO DAILY [facility] Last Admin: 12/19/17 08:39 Dose: 20 meq Tiotropium [place] (Spiriva Cap.Inh*) 1 cap INH DAILY [facility] Last Admin: 12/19/17 07:50 Dose: 2 puff Vital Signs - 8 hr 12/19/17 12/19/17 12/19/17 07:53 08:00 08:09 Temperature 98.1 F Pulse Rate 84 94 Respiratory 16 16 16 Rate Blood Pressure 149/77 (mmHg) O2 Sat by Pulse 95 95 Oximetry Oxygen Devices in Use Now: Nasal Cannula Appearance: NAD, sitting in chair. Eyes: No Scleral Icterus, PERRLA Ears/Nose/Mouth/Throat: NL Teeth, Lips, Gums, Mucous Membranes Moist Respiratory: - - slight exp wheezing. rhonchi RLL. no rales. Cardiovascular: NL Sounds; No Murmurs; No JVD, RRR Abdominal: NL Sounds; No Tenderness; No Distention, No Hepatosplenomegaly Extremities: No Edema, No Clubbing, Cyanosis Skin: No Rash or Ulcers, No Nodules or Sclerosis Neurological: Alert and Oriented x 3, NL Muscle Strength and Tone Result Diagrams: 12/19/17 05:55 12/17/17 04:54 Additional Lab and Data: Laboratory Results - last 24 hr 12/19/17 05:55 WBC 9.4 RBC 3.55 L Hgb 10.8 L Hct 32 L MCV 90 MCH 30 MCHC 34 RDW 13 Plt Count 369 MPV 6 L Neut % (Auto) Not Reportable Lymph % (Auto) Not Reportable [place] % (Auto) Not Reportable Eos % (Auto) Not Reportable Baso % (Auto) Not Reportable Absolute Neuts (auto) Not Reportable Absolute Lymphs (auto) Not Reportable Absolute Monos (auto) Not Reportable Absolute Eos (auto) Not Reportable Absolute Basos (auto) Not Reportable Absolute Nucleated RBC Not Reportable Immature Gran % 3 Neutrophils % 74 Band Neutrophils % 3 Lymphocytes % 19 L Monocytes % 2 Eosinophils % 0 Basophils % 0 Myelocytes % 2 H Nucleated RBC % Not Reportable Abs Neuts (Manual) 7.0 Abs Monocytes (Manual) 0.2 Absolute Eos (Manual) 0 Abs Basophils (Manual) 0 Normal RBC Morphology Normal Microbiology and Other Data: Microbiology 12/16/17 09:39 Sputum Gram Stain - Final 12/16/17 09:39 Sputum Sputum Culture - Preliminary Streptococcus Pneumoniae Normal [place] 12/16/17 18:45 Urine Urine Culture - Final 12/16/17 18:45 Urine Legionella Urinary Antigen - Final Negative Legionella 12/16/17 18:45 Urine Streptococcus pneumoniae Ag Screen - Final Negative S. pneumo Antigen 12/16/17 10:08 Blood Venous Aerobic Blood Culture - Preliminary No Growth Day 2 12/16/17 10:08 Blood Venous Anaerobic Blood Culture - Preliminary No Growth Day 2 12/16/17 10:08 Blood Venous Aerobic Blood Culture - Preliminary No Growth Day 2 12/16/17 10:08 Blood Venous Anaerobic Blood Culture - Preliminary No Growth Day 2 12/16/17 09:15 Nasal Influenza Types A,B Antigen (JANNA) - Final Specimen received for Influenza A/B Molecular testing Assess/Plan/Problems-Billing Assessment: 67 yo female PMH COPD, breast CA, HTN, hypothyroidism p/w productive cough, chills, SOB 2/2 RLL>RUL strep pna. On ceftriaxone and azithromycin but still needing supplemental oxygen with ambulation and rest. - Patient Problems (1) PNA (pneumonia) Current Visit: Yes Status: Acute Code(s): J18.9 - PNEUMONIA, UNSPECIFIED ORGANISM SNOMED Code(s): 511232662 Comment: Strep pna 3+ on Sputum Cx. Will increase ceftriaxone to 2g q24 from 1g q24. Continue azithromycin 250mg po s/p 1 dose levaquin in ED. f/u sensitivities, Gram Stain with 3+ BPC, 2+ GPB. strep pna and legionella urine Ags negative BCx negative. nontoxic appearing but gets significantly SOB with desaturations with ambulation 2 view CXR with persistent infiltrate. (2) COPD (chronic obstructive pulmonary disease) Current Visit: Yes Status: Acute Code(s): J44.9 - CHRONIC OBSTRUCTIVE PULMONARY DISEASE, UNSPECIFIED SNOMED Code(s): 19688337 Comment: home was advair and atrovent. continue dulera, duonebs q2h prn switch prednisone 60mg daily to solumedrol 40mg q8. (3) HTN (hypertension) Current Visit: Yes Status: Acute Code(s): I10 - ESSENTIAL (PRIMARY) HYPERTENSION SNOMED Code(s): 54854542 Comment: continue metoprolol 25mg BID. SBP 120-170s(briefly). (4) Hypothyroidism Current Visit: Yes Status: Acute Code(s): E03.9 - HYPOTHYROIDISM, UNSPECIFIED SNOMED Code(s): 32501224 Comment: continue synthroid 75 mcg daily. Status and Disposition: medicine inpatient. Continue PT Attending: Hemal Baum
[2017-12-19] MEDS: cefTRIAXone VIAL(*) 1,000 MG in NS 0.9% 50 ML* 50 ML IVPB SCH (10:31)
[2017-12-19] MEDS: cefTRIAXone(*) 2 GM in NS 0.9% 100 ML* 100 ML IVPB SCH (10:53)
[2017-12-19] MEDS: methylPREDNISolone SOD 40 MG* 1 ML VIAL IV SCH ×2 (12:26→18:22)
[2017-12-20] MEDS: Albuterol/Ipratropium NEB.SOL* Albuterol 2.5 MG/Ipratropium 0.5 MG 3 ML INH SCH ×3 (01:19→13:18)
[2017-12-20] MEDS: methylPREDNISolone SOD 40 MG* 1 ML VIAL IV SCH ×2 (03:13→11:02)
[2017-12-20] MEDS: Levothyroxine TAB* 75 MCG TAB PO SCH (06:25)
[2017-12-20] MEDS: Tiotropium CAP.INH* CAP.INH/18 MCG (USE ORDER SET !) INH SCH (07:51)
[2017-12-20] MEDS: Mometasone/Formoter 200/5 MDI INH SCH (07:51)
[2017-12-20] MEDS: Metoprolol Tartrate TAB* 25 MG PO SCH (08:52)
[2017-12-20] MEDS: Azithromycin TAB* 250 MG PO SCH (08:52)
[2017-12-20] MEDS: Potassium Chlor TAB* 20 MEQ TAB.ER PO SCH (08:52)
[2017-12-20] MEDS: Heparin VIAL(*) 5000 UNITS/ML VIAL (FIVE THOUSAND) SUBCUT SCH (08:53)
[2017-12-20] MEDS: cefTRIAXone(*) 2 GM in NS 0.9% 100 ML* 100 ML IVPB SCH (11:02)
[2017-12-20 14:07] VITALS: BP 158/72
--- NOTE | 2017-12-21 05:12 | DS ---
DISCHARGE SUMMARY: DATE OF ADMISSION: 12/16/17 DATE OF DISCHARGE: 12/20/17 ADMITTING PROVIDER: Ryan Manuel NP ATTENDING PHYSICIAN: Hemal Baum MD PRIMARY CARE PHYSICIAN: Adrienne Reyes MD CHIEF COMPLAINT: Cough, shortness of breath. PRINCIPAL DIAGNOSES: Streptococcal pneumonia; chronic obstructive pulmonary disease. HISTORY OF PRESENT ILLNESS AND HOSPITAL COURSE: Beverly Olvera is a 67-year- old female with past medical history of COPD, hypertension, hypothyroidism, breast cancer, status post mastectomy, atrial fibrillation thought secondary to thyroid disorder now resolved no longer on anticoagulation who presents with productive cough progressively worsening. She had been started on cough syrup with codeine made her feel drowsy, fatigued and began having progressive shortness of breath, cough, chills, and feeling generally unwell. She denied any chest pain, arthralgias, myalgias or weight changes. In the emergency room she was found on chest x-ray to have concern for right lower lobe infiltrates. She was satting 98% on 2 L, temperature was 98.3. White count was 13.3. She got her dose of Levaquin before being transient to azithromycin and ceftriaxone. CT of the chest was obtained on admission, which demonstrated right upper and lower lobe infiltrates most consistent with pneumonia. She had negative urine legionella and strep pneumonia antigens but her sputum culture eventually showed 3+ streptococcus pneumonia, which was sensitive to everything but azithromycin. She is nontoxic appearing and satting on room air with no exertion, but with any ambulation she would quickly desaturate and need 3 L of oxygen. She also had relatively tight chest exam and this provider increased her steroids to 40 mg IV q.8 after initially being started on 60 mg daily. She was also started on Spiriva, which would be a new medication for her. She again after several days continued to appear nontoxic and satting well on room air, but would desaturate on any ambulation. Her ceftriaxone dose was increased to 2 g q.24 hours after strep pneumonia was confirmed. She is being discharged, still requiring oxygen on ambulation, but not at rest having completed now 4 days of ceftriaxone plus the initial day of Levaquin. She is being discharged on additional doses of Levaquin and notably had a repeat chest x-ray performed on the 12/19/17, which showed still infiltrate/consolidative changes at the right lower base though is slightly improved. The patient has been afebrile throughout admission and leukocytosis resolved, white count 9.4 on 12/19/17. The patient will follow up with Dr. Adrienne Reyes on 12/26/17 and she recommended to have repeat chest x-ray in approximately 1 to 2 weeks. DISCHARGE MEDICATIONS: Include: 1. Levaquin 750 mg p.o. daily for 6 more days to last her until being seen by Dr. Reyes and while still requiring home oxygen on ambulation. 2. Levothyroxine 75 mcg every other day alternating with 37.5 mg every other day. 3. Metoprolol 25 mg p.o. b.i.d. 4. Potassium chloride tabs 20 mg p.o. daily. 5. Albuterol Ventolin HFA inhaler 2 puffs inhaled q.4 hours. 6. Advair Diskus 250-50 mg 1 puff inhaled b.i.d. 7. Hydrochlorothiazide tab 25 mg p.o. daily. 8. Ipratropium (Atrovent) 2 puffs inhaled q.6 hours. 9. Tiotropium 1 capsule inhaled daily (new). 10. Prednisone 20 mg tab to be taken, 40 mg x4 days then 20 mg x4 days. DISCHARGE DIET: No restrictions. ACTIVITY LEVEL: No restrictions though now needing supplemental oxygen with ambulation. FOLLOWUP: The patient will follow up with Dr. Adrienne Reyes at 11 a.m. on 04/07 and chest x-ray within 1 to 2 weeks. TIME SPENT: Time spent on discharge 40 minutes. [id number]/CPS #: [id number] MTDD
== END 2017-12-20 16:15 | disposition home or self-care (01) | DRG 190 ==
LOC: ED 08:47 → UNDOADMIN 11:36 → MED 11:36 → UNDODISIN 12-20 16:15
PROVIDERS: ADMIT Internal Medicine; ATTEND Internal Medicine
DX: J44.1 Chronic obstructive pulmonary disease with (acute) exacerbation (principal); J13 Pneumonia due to Streptococcus pneumoniae; I48.91 Unspecified atrial fibrillation; I10 Essential (primary) hypertension; E03.9 Hypothyroidism, unspecified; Z85.3 Personal history of malignant neoplasm of breast; Z79.899 Other long term (current) drug therapy; Z80.3 Family history of malignant neoplasm of breast; Z80.0 Family history of malignant neoplasm of digestive organs; Z87.891 Personal history of nicotine dependence
CPT/HCPCS: 36415; 71046; 71260; 80048; 80053; 81003; 81015; 82270; 82550; 83605; 83735; 83880; 84484; 85025; 85610; 86140; 87040; 87070; 87077; 87086; 87184; 87186; 87205; 87502; 87899; 93005; 94640; 94760; 99285; A9270-GY; J0456; J0696; J1644; J2920; J3480; J7512; Q9967